=== PATIENT | female | born 1980 ===

== ENCOUNTER 2024-12-09 04:21 | Emergency (ER) | payer SELFPAY ==
[2024-12-09 04:20] VITALS: BP 138/89; PULSE 96; RESP 19; TEMP 36.6; O2SAT 100
[2024-12-09] MEDS: oxyCODONE/ACETAMINOPHEN (*CRX) 5-325 MG TABLET 1 TABLET PO (04:45)
[2024-12-09] MEDS: HALOPERIDOL LACTATE 5 MG/ML VIAL IM (04:45)
--- NOTE | 2024-12-09 04:52 | ED.FALL ---
HPI - Fall General Chief Complaint: Fall Stated Complaint: fall in shower, head/ L hip pain Time Seen by Provider: 12/09/24 04:23 History of Present Illness HPI Narrative: Patient had been in the shower when she fell and hit her head and her left side. She had been drinking earlier. Related Data Allergies Allergy/AdvReac Type Severity Reaction Status Date / Time No Known Allergies Allergy Verified 12/09/24 04:44 Review of Systems Review of Systems: All systems reviewed & are unremarkable except as noted in HPI and below Exam Narrative: EXAMINATION OF ORGAN SYSTEMS/BODY AREAS: Constitutional: Vital signs per nursing GENERAL:[No acute distress, non-toxic appearing.] Extremely labile affect HEAD: Contusion to left mastoid bone EYES: EOMI, conjunctiva normal ENT: Hearing grossly intact; hoarse voice LUNGS: Nonlabored breathing. HEART: [Regular rate and rhythm] ABD: [Soft], [nontender to palpation] EXT: Normal range of motion, tiny abrasion left hip SKIN: [No rashes or lesions.] NEURO: [Alert and oriented x 4. No gross focal sensory or strength deficits.] Ambulating with normal steady gait. PSYCH: Belligerent affect Course Vital Signs Vital signs: Vital Signs Temperature 98 F 12/09/24 04:20 Pulse Rate 96 12/09/24 04:20 Respiratory Rate 19 12/09/24 04:20 Blood Pressure 138/89 12/09/24 04:20 Pulse Oximetry 100 12/09/24 04:20 Oxygen Delivery Room Air 12/09/24 04:20 Temperature 98 F 12/09/24 04:20 Pulse Rate 96 12/09/24 04:20 Respiratory Rate 19 12/09/24 04:20 Blood Pressure 138/89 12/09/24 04:20 Pulse Oximetry 100 12/09/24 04:20 Oxygen Delivery Room Air 12/09/24 04:20 MDM - Fall MDM Narrative Medical decision making narrative: Patient presenting after slipping and falling in the shower, no loss of consciousness, reporting pain to her left hip and head, worse than childbirth. I did order pain medication, patient initially cooperative, agreeable to getting treatment and scans here, but then flipped and started cussing at the nurses, calling them fucking retards and dillholes and bitch at some point throwing herself onto the floor and demanding that she be picked up even though she had been walking with normal steady gait. She is able to state her name, date, where she is and where she is staying, she is speaking with clear speech, she is refusing any further medical treatment, despite risks of missed diagnoses. She asked for clothes and is provided with scrubs. Patient became increasingly abusive verbally and hurling cuss words at staff; when I asked her why she was so upset and being so mean to everyone, she told me to fuck off and . She stormed off through the ambulance doors, at this time she is clinically sober as demonstrated by clear speech, steady gait, alert and oriented x4, I do feel she has autonomy to refuse and she does understand the risks of leaving at this time and I cannot hold her against her will. [place] [employer] are here speaking with patient in the parking lot. Discharge Plan Discharge Clinical Impression: Head injury Patient Disposition: Elopement After Seen by Prov Patient Language: Panamanian
--- NOTE | 2024-12-09 05:08 | PC.NURSE ---
Pt began screaming Fuck you fuckers you stupid motherfuckers Pt crawled off stretcher and removed gown and was walking through ED hallway naked and began screaming get me the fuck out of here where am I at bitch . you all are nonbinary fucks . This RN gave pt paper scrubs and asked pt to please go back to room. Pt ambulated back to ER room 1. Pt then put paper scrubs on and walked out of ed through ambulance bay. Pt continued to scream while ambulating out. Pts a&o status was assessed by this RN with EDP Dr. Chen at bedside. Pt was a&ox4.
--- NOTE | 2024-12-09 05:14 | PC.NURSE ---
ED charge nurse contacted [facility] to remove pt from hospital property.
--- OUTSIDE RECORDS SUMMARY | 2024-12-09 05:28 | XMS_ITS | Continuity of Care Document ---
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 again in about 3 months Related to Bipolar disorder in remission Glad to know that ev erything is going so well! Keep up the momentum! Remember to surround yourself with positive people who bring out the best in you, avoid those who only bring trouble into your life.Continue to take your meds consistently.Remember to get your labs done in about 4 weeks. We can plan on seeing you for follow-up in 6-8 weeks Related to Bipolar 1 disorder We are going to star t you on a nasal steroid, FLUTICASONE, which you can use 1 spray nightly prior to going to bed. You can also use it in the morning (so twice daily) if that seems to work better.Remember to stay well-hydrated, drinking roughly 8 glasses of water daily Related to Sore throat We will plan to repe at screening labs in about 3 months Related to Screening for STD (sexually transmitted disease) urine testing for ch lamydia and gonorrhea in 4 weeksherpes blood testing is an option, but it takes 6-12 weeks after exposure and can only tell if you had every been exposed to herpes, not when or if you will ever get a sore. Your PCP has already ordered STD screenings for future. keep appointment to see your pcp next month. 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 Related to Bipolar 1 disorder, manic, moderate Please make sure to get your labs done Related to High risk heterosexual behavior Please stop by the [facility] to get your lithium levels checked.Meanwhile, continue on your current dose of lithium, we can adjust further in the future depending on how your symptoms are doing and where your levels are at.We will continue your current dose of Seroquel as wellContinue to work with your counselor through [facility] as well as the [facility] and other individuals that are trying to help you. Related to Bipolar 1 disorder, manic, moderate Please stop by the [facility] to get your labwork done as you start [employer].]We will start you on LITHIUM 300 mg three times daily.I continue to encourage you to take SEROQUEL as you're able to tolerate it. Try taking it only at times of day where you don't feel like it's causing as many side effects.I'm also sending HYDROXYZINE 50 mg that you can use for episodes of severe anxiety.Meanwhile, I'm placing a referral to Psychiatry so they can review your diagnosis and treatment and make sure we're the doing the best that we can to help you.I encourage you to CONTACT [facility] to find a TRUCK SUPERVISOR as they can be very helpful in coordinating resources, including housing. Related to Bipolar 1 disorder, manic, moderate Start Seroquel 50 mg TWICE DAILY for 1 day and the increase to 50 mg 2 tablets TWICE DAILY (200 mg total) gradually until day 4. Keep taking 50 mg TWO tablets TWICE DAILY until I see you next.Please return in 2 weeks to see how you're doing on this first dose.We're happy to help you with everything going on with you - I want to help you with your family and living situation as much as possible Related to Bipolar 1 disorder, manic, moderate Colpo today - we laury l call you with results - within 2 weeks. Quitting smoking can help your body fight infections - let us know if we can help you with this. Related to Low grade intrepith lesion cyto smr crvx (LGSIL) Continue to follow u p with [facility], you have been given a list of resources to set up counseling Related to Bipolar affective disorder, remission status unspecified H/o tubal ligation Related to Tu bal ligation status Tdap updated today Related to En counter for immunization Will order STD testing Related t o Screen for sexually transmitted diseases The recommended exer cise is 150 minutes per week which is about 30 minutes per day five days of the week. Simply get out and walk. You will notice that you can go farther every day in the same amount of time. Use this time for yourself or take your partner/kid with you. You should do some type of weight training about 2 days per week. Limit your red meat intake and if you do, try to eat grass fed animals as these are higher in omega 3 fatty acids. If it doesn't swim or fly, try not to have it more than twice per week. Eat more whole grains if you are eating starches. Avoid sugars, especially those in drinks (sodas, teas). And of course eat lots of veggies. Related to Encntr for general adult medical exam w/o abnormal findings Pap collected today Related to S creening for cervical cancer see me next month fo r a Well Woman exam and pap smearrecommend flu shot Related to Preventative health care Quitting is the best thing you can do for your health.[id number] ( ) Related to Smoker continue current med s and [facility] supply until you can be seen by [facility] Related to Bipolar affective disorder, remission status unspecified Assessments Type Assessment Date No Information
== END 2024-12-09 05:51 | disposition left against medical advice (07) ==
LOC: ANHED 05:26
PROVIDERS: Emergency Provider Emergency Medicine
DX: S09.90XA Unspecified injury of head, initial encounter (principal); W18.2XXA Fall in (into) shower or empty bathtub, initial encounter
CPT/HCPCS: 96372; 99283; A9270; J1630